=== PATIENT | male | born 1960 | race Two or more races ===

== ENCOUNTER 2020-01-04 17:21 | Emergency (ER) | payer MEDICAID ==
[~2020-01-04] VITALS: Ht 170.2 cm; Wt 87.5 kg
[~2020-01-04 17:21] MED LIST: ACET-1079
[2020-01-04 17:30] VITALS: BP 130/57
[2020-01-04] MEDS ORDERED: HYDROcodone-ACET 5/325MG TAB PO ONE (19:30)
== END 2020-01-04 20:15 | disposition home or self-care (01) ==
LOC: ER 17:21
DX: M17.12 Unilateral primary osteoarthritis, left knee (principal)
CPT/HCPCS: 29505; 73562